=== PATIENT | female | born 1975 | race Two or more races ===

== ENCOUNTER 2016-12-24 17:53 | Emergency (ER) | payer SELFPAY ==
[2016-12-24 18:08] VITALS: RESP 16; TEMP 97.7
--- NOTE | 2016-12-24 20:14 | EDPHY ---
H & P Time Seen by Provider: 12/24/16 18:34 HPI/ROS: CHIEF COMPLAINT: Right 3rd digit laceration HISTORY OF PRESENT ILLNESS: 41-year-old female presents to the emergency department with injury to her right middle finger. The patient was at home cutting CABG and accidentally cut her finger. The incident happened just prior to arrival. She was able to control the bleeding with firm direct pressure. She is right-hand dominant. She believes her tetanus shot is current. ROS: Denies numbness or tingling in her fingers, retained foreign body. Denies injury to the other fingers. Past Medical/Surgical History: Negative Social History: Single, visiting from [place] Physical Exam: On examination the patient has a 1 cm in diameter skin avulsion to the distal, palmar aspect of the right 3rd finger. No nail avulsion noted. It does not extend into the D IP joint. Full range of motion of her fingers. No palpable bony tenderness. Normal sensation to light touch with normal 2 point discrimination. The other fingers do not appear injured. Constitutional: Initial Vital Signs Temperature (C) 36.5 C 12/24/16 18:05 Heart Rate 62 12/24/16 18:05 Respiratory Rate 16 12/24/16 18:05 Blood Pressure 114/40 L 12/24/16 18:05 O2 Sat (%) 98 12/24/16 18:05 O2 Delivery Mode Room Air Allergies/Adverse Reactions: No Known Allergies Allergy (Unverified 12/24/16 18:08) Home Medications: Medication Instructions Recorded NK [No Known Home Meds] 12/24/16 MDM/Departure - MDM Procedures: Verbal consent was obtained from the patient. The 1 cm skin avulsion on the right 3rd finger was anesthetized using digital block using 1% lidocaine without epinephrine and 0.5% bupivacaine without epinephrine. The wound was irrigated with saline, draped and explored to its base with a gloved finger. There were no deep structures involved. No tendon injury was identified. No sutures required. Surgical foam and tube gauze dressing placed. The wound repair was simple. The procedure was performed by myself. ED Course/Re-evaluation: 41-year-old female presents with skin avulsion to her right 3rd finger. See procedure note. Surgical foam and tube gauze dressing applied. No sutures required. Patient was given wound care precautions. - Depart Disposition: Home, Routine, Self-Care Clinical Impression: Skin avulsion right 3rd finger Condition: Good Instructions: Skin Avulsion (ED), Acute Wounds (ED) Additional Instructions: Return to the emergency department if you notice any signs or symptoms of infection such as redness, swelling, increased pain, fever, purulent drainage. Keep wound dry, clean and protected. You may remove dressing in 48 hours. Referrals: [facility],. [Clinic] - 2-3 days, if not improved
[2016-12-24 20:50] VITALS: BP 101/60; PULSE 61; O2SAT 97
== END 2016-12-24 20:49 | disposition home or self-care (01) ==
PROC: 0HQFXZZ Repair Right Hand Skin, External Approach (ICD-10-PCS; principal; 2016-12-24)
DX: S61.202A Unspecified open wound of right middle finger without damage to nail, initial encounter (principal); W26.9XXA Contact with unspecified sharp object(s), initial encounter; Y92.009 Unspecified place in unspecified non-institutional (private) residence as the place of occurrence of the external cause; Y99.8 Other external cause status; Y93.89 Activity, other specified